=== PATIENT | female | born 1950 | race Caucasian/White ===

== ENCOUNTER 2021-08-07 10:32 | Emergency (ER) | payer MEDICARE, SELFPAY ==
--- NOTE | ~2021-08-07 | US_ITS ---
EXAMINATION: US VENOUS ULTRASOUND WITH DOPPLER LOWER EXTREMITY, RIGHT CLINICAL INFORMATION: Right-sided calf pain. Patient is on aspirin. COMPARISON: None TECHNIQUE: Ultrasound of the deep veins is performed from the hip to the calf with compression sonography and color and pulse Doppler assessment. Spectral analysis with color-flow imaging is performed. FINDINGS: There is normal venous compression and respiratory variation and augmented flow. The visualized common femoral vein, superficial femoral vein, profunda femoral vein, popliteal vein, and the trifurcation region shows no evidence of deep venous thrombosis. There are varicose vein seen in right mid calf and along the lateral aspect where there is thrombus visualized consistent with superficial thrombophlebitis. There is no significant popliteal fossa cyst. If the patient's symptoms persist, followup ultrasound in 5 days 7 days might be of value to exclude proximal propagation from a non-visualized calf vein. US/US venous duplex LE RT IMPRESSION: No DVT demonstrated in the right lower extremity. Superficial thrombophlebitis of right calf varicose veins.
[2021-08-07 10:44] VITALS: BP 163/91; PULSE 77; RESP 16; TEMP 35.9; O2SAT 98; BMI 20.7
--- NOTE | 2021-08-07 11:16 | ED_ITS ---
HPI - Extremity Problem General Chief complaint: Extremity Problem Stated complaint: Thrombophlebitis Time Seen by Provider: 08/07/21 11:16 Source: patient Mode of arrival: ambulatory Limitations: no limitations History of Present Illness HPI Narrative: 70-year-old female past medical history significant for anxiety presenting to the emergency department with complaints of right-sided calf tenderness on discomfort times a week. Patient tells me she was seen yesterday at urgent care where she was told that her diagnosis was pain and right leg, cellulitis she was started on Keflex 500 mg p.o. t.i.d. times 10 days. She was told to go have an outpatient ultrasound to rule out DVT, patient tells me she went to [facility], she got an ultrasound and she was told that she had a 7.3 cm thrombophlebitis however this is not an official report, patient comes in requesting another right lower extremity DVT study. She tells me that there was too much confusion and her right thigh is still bothering her. She denies previous DVT/PE. She is on daily aspirin. She denies chest pain, shortness of breath, nausea, vomiting, headache, dizziness, weakness, palpitations. MD Complaint: extremity swelling Onset (ago): week(s) (1) Pain Consistency: constant Location: right Quality: dull Radiation: none Relieving factors: nothing Exacerbating factors: nothing Associated symptoms: denies other symptoms Related Data Allergies Allergy/AdvReac Type Severity Reaction Status Date / Time No Known Allergies Allergy Verified 08/07/21 10:46 Review of Systems Review of Systems: Constitutional : No Weight loss, No Fever, No Chills, No Fatigue, No Malaise ENT/Mouth : No sore throat, No Rhinorrhea Eyes: No Eye Pain, No Swelling, No Redness Cardiovascular : No Chest Pain, No SOB, No Dyspnea on Exertion, No Orthopnea, No Edema, No Palpitations Respiratory : No Cough, No Sputum, No Wheezing Gastrointestinal : No Nausea, No Vomiting, No Diarrhea, No Constipation, No abdominal Pain, No Hematochezia, No Melena Genitourinary : No Dysuria, No Urinary Frequency, No Hematuria, Musculoskeletal : No joint pain, No Myalgias, No Joint Swelling, + leg swelling Skin : No Skin Lesions, No rash Neuro : No Weakness, No Numbness, No Dizziness, No Headache Psych : No Anxiety/Panic, No Depression All other systems reviewed and are negative Yes all other systems are reviewed and are negative [facility] Past Medical History Attestation statement: The following information was validated with the patient. Source: old records reviewed and nursing notes reviewed Social History Social History Advance Directives: No Advance Directives Information Provided: No Physical Exam Vital Signs: Vital Signs: Last Vital Signs Temp 97.6 F 08/07/21 12:55 Pulse 56 08/07/21 12:55 Resp 18 08/07/21 12:55 BP 164/85 H 08/07/21 12:55 Pulse Ox 96 08/07/21 11:38 BMI result Body Mass Index 20.7 VSS Appearance: Alert.? Oriented X3.? No acute distress.?Appears anxious Head: Normocephalic, atraumatic, no step-offs or deformities Eyes: Pupils equal, round and reactive to light.? ENT: Pharynx normal.? Neck: Normal inspection.? Neck supple.? CVS: Normal heart rate and rhythm.? Pulses normal.? Respiratory: No respiratory distress.? Breath sounds normal.? Abdomen: Soft and nontender.? Skin: Skin warm and dry.? Normal skin color.? Normal skin turgor.? Extremities: No lower extremity edema.? No calf ttp, negative champ. 5/5 strength to bilateral upper and lower extremities Back: No midline tenderness, no C-spine tenderness, full range of motion, no CVA tenderness bilaterally Neuro: Oriented X 3.? No motor deficit.? No sensory deficit. CN 2-12 intact Course Reevaluation(s) Reevaluation #1: Ultrasound of the right lower extremity with superficial thrombophlebitis of the right calf varicose veins, no DVT demonstrated in the right lower extremity. At this time I have educated patient on diagnosis, treatment plan. I advised her to follow-up in 5-7 days if she is still having discomfort as she may require a follow-up ultrasound. At this time I feel comfortable discharge home with PCP follow-up. Comfortable discharge To at time of discharge patient stable, vital signs stable. History and physical examination not consistent with pulmonary embolism. At this time she will be discharged home Time: 13:34 MDM - Extremity (Nontraumatic) MDM Narrative Medical decision making narrative: 2320 70-year-old female presents to the emergency department requesting a right lower extremity ultrasound to rule out DVT. Patient had 1 done however has not been bread, patient extremely anxious about this, reports continued right-sided calf pain. Denies shortness of breath or chest pain. Physical examination benign, unable to appreciate lower extremity edema, negative Champ bilaterally. Regular rate and rhythm. Lungs clear. Abdomen soft nontender nondistended. Neuro exam is nonfocal. Vital signs stable. Well score of 1 PERC score 1 for age, however, I do not suspect PE. Plan duplex us of RLE Medical Records Attestation: I reviewed the patient's medical records. Lab Data Attestation: I reviewed the patient's lab results. Critical Care Time Critical Care Time Critical Care Time: No Discharge Plan Discharge Clinical Impression: Superficial thrombophlebitis, Pain of right calf Patient Disposition: Home, Self-Care Instructions: Leg Pain (ED) Additional Instructions: Take your medications as prescribed. If you were prescribed antibiotics today, it is important that you take your medication to their entirety, do not skip any doses, do not finish them early. Follow-up with your primary care provider this week. Return to the emergency department with new or worsening symptoms. Such as fevers, chills, chest pain, shortness of breath, nausea, vomiting, dizziness, headache, vision changes, lethargy In case of emergency call 911 If the patient's symptoms persist, followup ultrasound in 5 days 7 days might be of value to exclude proximal propagation from a non-visualized calf vein. US/US venous duplex LE RT IMPRESSION: No DVT demonstrated in the right lower extremity. Superficial thrombophlebitis of right calf varicose veins. Referrals: Yanick Mock III, MD [Primary Care Provider] - 2 days
[2021-08-07 11:38] VITALS: BP 177/82; PULSE 70; RESP 18; O2SAT 96
[2021-08-07 12:55] VITALS: BP 164/85; PULSE 56; RESP 18; TEMP 36.4
== END 2021-08-07 13:41 | disposition home or self-care (01) ==
LOC: HO.ED 11:48
PROVIDERS: Emergency Provider Student in an Organized Health Care Education/Training Program; PCP Internal Medicine
DX: I80.01 Phlebitis and thrombophlebitis of superficial vessels of right lower extremity (principal); M79.661 Pain in right lower leg; Z79.82 Long term (current) use of aspirin
CPT/HCPCS: 93971; 99283; 99284

== ENCOUNTER 2021-08-11 09:07 | Emergency (ER) | payer MEDICARE, SELFPAY ==
--- NOTE | ~2021-08-11 | XR_ITS ---
EXAMINATION: XR CHEST CLINICAL INFORMATION: Palpitations and chest pain at times. COMPARISON: None TECHNIQUE: 2 views of the chest were obtained. FINDINGS: There is generalized hyperinflation. The lungs are clear. There are no pleural effusions. The heart and mediastinal structures are unremarkable. XR/XR chest 2V IMPRESSION: Generalized hyperinflation is nonspecific, but can be seen with COPD. No acute cardiopulmonary process.
[2021-08-11 09:13] VITALS: BP 169/96; PULSE 91; RESP 18; TEMP 36.6; O2SAT 98; BMI 20.7
--- NOTE | 2021-08-11 09:17 | ECG_ITS ---
Test Reason : DIZZINESS Blood Pressure : / mmHG Vent. Rate : 081 BPM Atrial Rate : 081 BPM P-R Int : 132 ms QRS Dur : 082 ms QT Int : 386 ms P-R-T Axes : 078 007 064 degrees QTc Int : 448 ms Normal sinus rhythm Biatrial enlargement Possible Inferior infarct , age undetermined Abnormal ECG No previous ECGs available Referred By: Generic ED Physician Electronically Signed By:MICHELLE SALMERON
[2021-08-11 09:29] LABS: MANUAL DIFF FLAG NO
[2021-08-11 09:38] LABS: Basophils Absolute Auto 0.1 X10*3/uL (0.0-0.2); Basophils Percent Auto 0.9 % (0-2); Eosinophils Absolute Auto 0.1 X10*3/uL (0.0-0.4); Eosinophils Percent Auto 0.6 % (0-4); Hematocrit 38.7 % (37.0-47.0); Hemoglobin 12.8 g/dl (12.0-16.0); Imm Gran Abs Auto 0.02 X10*3/uL (0.00-0.03); Imm Gran Pct Auto 0.3 % (0.0-0.4); Lymphocytes Absolute Auto 1.8 X10*3/uL (1.2-4.9); Lymphocytes Percent Auto 22.6 % (20-40); Mean Corpuscular HGB Conc 33.1 g/dl (31.0-35.0); Mean Corpuscular Hemoglobin 31.4 pg (27.0-33.0); Mean Corpuscular Volume 94.9 fL (80.0-98.0); Mean Platelet Volume 9.8 fL (9.4-12.3); Monocytes Absolute Auto 0.6 X10*3/uL (0.1-1.2); Monocytes Percent Auto 7.4 % (2-11); Neutrophils Absolute Auto 5.4 x10*3/uL (2.0-8.3); Neutrophils Percent Auto 68.2 % (45-73); Platelet Count 231 X10*3/uL (160-400); Red Blood Count 4.08 X10*6/uL (4.20-5.50); Red Cell Distribution Width 13.9 % (11.0-16.0); White Blood Count 7.9 X10*3/uL (4.8-10.8)
[2021-08-11 09:45] LABS: Anion Gap 14 (12-20); Blood Urea Nitrogen 15 mg/dL (9-16); Calcium 9.2 mg/dL (8.4-10.2); Carbon Dioxide 22 mmol/L (22-29); Chloride 105 mmol/L (96-108); Creatinine Clr Calc Pharmacy 51.3; Estimated Glomerular Filt Rate > 60; Glucose Random 144 mg/dL (60-115); Sodium 136 mmol/L (135-145)
[2021-08-11 09:49] LABS: Troponin-I High Sensitivity < 3.5 ng/L (<3.5-17.0)
[2021-08-11 13:07] VITALS: BP 185/93; PULSE 81; RESP 19; O2SAT 98
--- NOTE | 2021-08-11 17:42 | ED.GENADULT ---
HPI - General Adult General Chief complaint: General Medical Stated complaint: high bp, Time Seen by Provider: 08/11/21 17:29 Source: patient and old records reviewed Mode of arrival: ambulatory Limitations: no limitations History of Present Illness MD complaint: high BP, anxiety, stress Onset (ago): week(s) (1) Severity: mild Quality: other (anxiety) Pain Consistency: intermittent Relieving factors: other (does take xanax 0.5mg daily PRN but only one dose a day) Exacerbating factors: other (very stressed out about her coming home from rehab states she cannot care for him and he his coming home on Sunday ) Associated symptoms: other (anxiety, stress, feels some pain in chest at times mild, feels palpitations) Treatments prior to arrival: none Related Data Previous Rx's Medication Instructions Recorded amlodipine 2.5 mg tablet 2.5 mg PO DAILY #30 tabs 08/11/21 Allergies Allergy/AdvReac Type Severity Reaction Status Date / Time No Known Allergies Allergy Verified 08/07/21 10:46 Review of Systems Review of Systems: Constitutional : No Fever, No Chills ENT/Mouth : No sore throat, No Rhinorrhea, No Swallowing Difficulty Eyes: No Eye Pain, No Swelling, No Redness Cardiovascular : pos Chest Pain, no SOB, No Orthopnea, no Edema, pos palpitations Respiratory : No Cough, No Sputum, No Wheezing, positive dyspnea Gastrointestinal : No Nausea, No Vomiting, No Diarrhea, No abdominal Pain, No Hematochezia, No Melena Genitourinary : No Dysuria, No Urinary Frequency, No Hematuria Musculoskeletal : No joint pain, No Myalgias Skin : No Skin Lesions, No rash Neuro : No Weakness, No Numbness, No Dizziness, No Headache Psych : pos Anxiety/Panic, No Depression Heme/Lymph: No Bruising, No Lymphadenopathy Endocrine : No Polyuria, No Polydipsia All other systems reviewed and are negative [facility] Past Medical History Attestation statement: The following information was validated with the patient. Medical History Anxiety PVD (peripheral vascular disease) Raynaud disease Social History Social History (Updated 08/11/21 @ 17:48 by Kelley Mcnamara DO) Patient Tobacco Use Status: Tobacco use Unknown Advance Directives: No Advance Directives Information Provided: No Physical Exam ED Vital Signs: Vital Signs - 24 hr 08/11/21 09:13 08/11/21 13:07 08/11/21 17:44 Temperature 98 F Pulse Rate 91 81 Respiratory Rate 18 19 Blood Pressure 169/96 H 185/93 H 167/78 H Pulse Oximetry 98 98 Oxygen Delivery Method Room Air BMI result Body Mass Index 20.7 Appearance: Alert. Oriented X3. No acute distress. Anxious Eyes: Pupils equal, round and reactive to light. ENT: Pharynx normal. Neck: Normal inspection. Neck supple. CVS: Normal heart rate and rhythm. Pulses normal. Respiratory: No respiratory distress. Breath sounds normal. Abdomen: Soft and nontender. Skin: Skin warm and dry. Normal skin color. Normal skin turgor. Extremities: No lower extremity edema. Bilateral engorged veins no signs of infection Neuro: Oriented X 3. No motor deficit. No sensory deficit. Course Course Course Narrative: labs stable spoken to by CM stable for DC Medical Decision Making MDM Narrative Medical decision making narrative: 70 yo female hx of anxiety, PVD very stressed out here with c/o BP at home up to 180s at home due to stress with the thought of her ill coming back home from [facility]. She states she cannot care for him and they are sending him back regardless. She takes 0.5mg once daily PRN anxiety. She feels overwhelmed and stressed. Her BP prior to this had been increasing at home prior to this event. Will obtain EKG, basic labs, troponin x 1, offer case management, trend BP and likely start on amlodipine 2.5mg daily. May need to increase xanax 0.5mg to BID during this life event. Lab Data Result diagrams: 08/11/21 09:26 08/11/21 09:26 Labs: Lab Results 08/11/21 08/11/21 08/11/21 Range/Units 09:26 09:26 09:26 WBC 7.9 (4.8-10.8) X10*3/uL RBC 4.08 L (4.20-5.50) X10*6/uL Hgb 12.8 (12.0-16.0) g/dl Hct 38.7 (37.0-47.0) % MCV 94.9 (80.0-98.0) fL MCH 31.4 (27.0-33.0) pg MCHC 33.1 (31.0-35.0) g/dl RDW 13.9 (11.0-16.0) % Plt Count 231 (160-400) X10*3/uL MPV 9.8 (9.4-12.3) fL Immature Gran % (Auto) 0.3 (0.0-0.4) % Neut % (Auto) 68.2 (45-73) % Lymph % (Auto) 22.6 (20-40) % [place] % (Auto) 7.4 (2-11) % Eos % (Auto) 0.6 (0-4) % Baso % (Auto) 0.9 (0-2) % Lymph # (Auto) 1.8 (1.2-4.9) X10*3/uL [place] # (Auto) 0.6 (0.1-1.2) X10*3/uL Eos # (Auto) 0.1 (0.0-0.4) X10*3/uL Baso # (Auto) 0.1 (0.0-0.2) X10*3/uL Abs Immat Gran (auto) 0.02 (0.00-0.03) X10*3/uL Absolute Neuts (auto) 5.4 (2.0-8.3) x10*3/uL Absolute Nucleated RBC 0.000 (0.0-0.012) X10*3/uL Nucleated RBC % (auto) 0.0 (0.0-0.2) /100WBC Sodium 136 (135-145) mmol/L Potassium 5.0 (3.3-5.1) mmol/L Chloride 105 (96-108) mmol/L Carbon Dioxide 22 (22-29) mmol/L Anion Gap 14 (12-20) BUN 15 (9-16) mg/dL Creatinine 0.88 (0.5-1.4) mg/dL Estim Creat Clear Calc 51.3 Estimated GFR > 60 Random Glucose 144 H (60-115) mg/dL Calcium 9.2 (8.4-10.2) mg/dL Troponin I High Sens < 3.5 (<3.5-17.0) ng/L ECG Data Attestation: I personally reviewed and interpreted this ECG as follows: Interpretation: Rate: 81 Rhythm: NSR [place]: normal Normal P waves. Normal [place]. Normal QRS complex. ST T wave : beatriz no DEWAYNE qTC: normal prior studies: no acute ischemia The study has been interpreted contemporaneously by me. . Discharge Plan Discharge Clinical Impression: Stress, HTN (hypertension) Patient Disposition: Home, Self-Care Instructions: Stress (ED), Hypertension (ED) Additional Instructions: return to ED for any worsening symptoms or concerns please follow up with your doctor, if you become dizzy or feel lightheaded stop taking blood pressure medications your EKG, blood work and chest xray were normal today Prescriptions: New amlodipine 2.5 mg tablet 2.5 mg PO DAILY Qty: 30 0RF Referrals: Yanick Mock III, MD [Primary Care Provider] - 1 week
[2021-08-11 17:44] VITALS: BP 167/78
[2021-08-11 18:27] VITALS: BP 163/80; PULSE 65; RESP 18; TEMP 36.9; O2SAT 98
--- NOTE | 2021-08-11 18:34 | PC.NURSE ---
PT HAS BEEN PATIENTLY WAITING. RLE HAS SWELLING AND DARK REDDNESS. PALPABLE PEDAL PULSES.
--- NOTE | 2021-08-11 18:50 | MHC.CM.ED ---
CM met with patient at the request of Dr. Mcnamara. Pt is very anxious about 's discharge from local [facility]. Pt appears very distressed and is happy to speak with CM. The patient is very unhappy with her 's impending discharge as she states she cannot care for him. She is worried about his hx of falls. Pt appealed his discharge and it was denied. Upon further conversation CM determined that her has d/c services with [facility] and PT. Encouraged pt to call [facility] for further supports. Enc pt to involve pt's grown children if possible. Also spoke with patient about considering private pay [employer] if they can afford it. CM explained to pt that I could listen and offer suggestions, but that I could not do anything for her , as he is being cared for at another facility. Pt requesting a letter from the doctor stating that she is medically unwell and cannot care for her this weekend. Explained to patient that I did not think the doctor would be able to do that for her. Explained that I would speak with the doctor about our conversation. Also explained to the patient that if her were to fall or appear unsafe when he is at home, she can always bring him to the emergency room for care. CM reviewed above with Dr. Mcnamara. Pt medically cleared. Dr. Mcnamara will order BP and anxiety medications for pt.
== END 2021-08-11 18:38 | disposition home or self-care (01) ==
PROVIDERS: Emergency Provider Emergency Medicine; PCP Internal Medicine
DX: F41.9 Anxiety disorder, unspecified (principal); I10 Essential (primary) hypertension; Z73.3 Stress, not elsewhere classified; Z72.89 Other problems related to lifestyle; Z63.6 Dependent relative needing care at home; Z79.899 Other long term (current) drug therapy
CPT/HCPCS: 36415; 71046; 80048; 84484; 85025; 93005; 99282; 99283

== ENCOUNTER 2021-08-18 12:06 | Emergency (ER) | payer MEDICARE, SELFPAY ==
--- NOTE | ~2021-08-18 | US_ITS ---
EXAMINATION: US VENOUS ULTRASOUND WITH DOPPLER LOWER EXTREMITY, RIGHT CLINICAL INFORMATION: Right lower extremity edema and pain COMPARISON: None TECHNIQUE: Ultrasound of the deep veins is performed from the hip to the calf with compression sonography and color and pulse Doppler assessment. Spectral analysis with color-flow imaging is performed. FINDINGS: There is normal venous compression and respiratory variation and augmented flow. The visualized common femoral vein, superficial femoral vein, profunda femoral vein, popliteal vein, and the trifurcation region shows no evidence of deep venous thrombosis. There is no significant popliteal fossa cyst. If the patient's symptoms persist, followup ultrasound in 5 days 7 days might be of value to exclude proximal propagation from a non-visualized calf vein. US/US venous duplex LE RT IMPRESSION: No DVT demonstrated in the right lower extremity.
[2021-08-18 12:13] VITALS: BP 171/89; PULSE 81; RESP 16; TEMP 36.6; O2SAT 99; BMI 20.7
--- NOTE | 2021-08-18 12:21 | ED_ITS ---
HPI - General Adult General Chief complaint: Skin/Abscess/Foreign Body Stated complaint: cellulitis blood clots follow up Time Seen by Provider: 08/18/21 12:20 Source: patient Mode of arrival: ambulatory Limitations: no limitations History of Present Illness HPI narrative: Patient is a 70 year old female presenting to the emergency department today with right lower leg pain and swelling. Patient states that she was seen a week ago for right lower leg cellulitis and superficial thrombitis. Patient states that the original area of concern for her was the lateral side of the medial side of the right lower leg. That has resolved and now it is the lateral side of the right lower leg. Patient states that she has a vascular surgeon but has not been able to follow up with him because her is very ill and requires round the clock care. Patient states that she absolutely cannot stay here today as she has to go back home to take care of her . Patient denies any dizziness, lightheadedness, abdominal pain, nausea, vomiting, fever, chills, blurry vision, double vision, loss of vision, chest pain, difficulty breathing, shortness of breath, back pain, night sweats, pain with urination, increased urinary frequency, increased urinary urgency, blood in her urine or stool, syncope or a near syncopal episode, recent trauma or falls, bowel incontinence, bladder incontinence, bowel retention, bladder retention, or any other complaints at this time. Onset (ago): day(s) Location: right and lower extremity Radiation: non-radiation Severity: mild Severity scale (1-10): 3 Quality: dull Pain Consistency: constant Relieving factors: none Exacerbating factors: none Associated symptoms: denies other symptoms Treatments prior to arrival: none Related Data Previous Rx's Medication Instructions Recorded amlodipine 2.5 mg tablet 2.5 mg PO DAILY #30 tabs 08/11/21 cephalexin 500 mg capsule 500 mg PO Q6H 7 days #28 caps 08/18/21 sulfamethoxazole 800 1 tab PO BID 7 days #14 tabs 08/18/21 mg-trimethoprim 160 mg tablet (Bactrim DS) Allergies Allergy/AdvReac Type Severity Reaction Status Date / Time No Known Allergies Allergy Verified 08/07/21 10:46 Review of Systems Constitutional: Constitutional: Reports no additional constitutional complaints, Denies chills, Denies fever(s) and Denies night sweats Eyes: Eyes: Reports no additional eye complaints, Denies blurry vision, Denies change in vision, Denies diplopia, Denies eye discharge, Denies loss of vision a nd Denies eye pain ENT: Denies dizziness Cardiovascular: Cardiovascular: Reports no additional cardiovascular compla ints, Denies chest pain, Denies lightheadedness, Denies Loss of Consciousness and Denies dyspnea Respiratory: Respiratory: Reports no additional respiratory complaints and Denies dyspnea Gastrointestinal: Gastrointestinal: Reports no additional gastrointestinal complaints, Denies abdominal pain, Denies melena, Denies hematochezia, Denies change in bowel habits and Denies change in stool character Genitourinary: Genitourinary: Denies hematuria, Denies urinary frequency, Denies dysuria, Denies urinary incontinence, Denies urinary hesitancy and Denies urinary urgency Musculoskeletal: Musculoskeletal: Reports no additional musculoskeletal complaints, Denies numbness and Denies tingling Integumentary/Breasts: Comments: right lower leg pain and swelling Neurologic: Denies dizziness, Denies loss of vision, Denies numbness and Denies tingling Psychiatric: Psychiatric: Reports no additional psychiatric complaints Endocrine: Endocrine: Reports no additional endocrine complaints Hematologic/Lymphatic: Hematologic/Lymphatic: Reports no additional hematologic/lymphatic complaints Allergic/Immunologic: Allergic/Immunologic: Reports no additional allergic/im munologic complaints PMFSH Past Medical History Attestation statement: The following information was validated with the patient. Source: old records reviewed Medical History Anxiety PVD (peripheral vascular disease) Raynaud disease Social History Social History Patient Tobacco Use Status: Tobacco use Unknown Advance Directives: Yes Advance Directives Information Provided: Yes Advance Directives on File: No Physical Exam ED Vital Signs: Vital Signs - 24 hr 08/18/21 12:13 08/18/21 15:28 Temperature 97.8 F 98.9 F Pulse Rate 81 80 Respiratory Rate 16 18 Blood Pressure 171/89 H 156/70 H Pulse Oximetry 99 96 Oxygen Delivery Method Room Air Room Air BMI result Body Mass Index 20.7 Const General: cooperative, no acute distress, alert and awake Nutritional Appearance: well nourished Orientation/consciousness: patient oriented x3 Limitations: no limitations HENMT Head: Yes normal to inspection and Yes atraumatic Ears: hearing grossly normal bilaterally and external ears normal General nose exam: Normal external nose present, no nasal discharge noted and no epistaxis Face and sinus: Yes normal facial exam, No abrasion and No laceration Mouth: Normal oral and palatal mucosa present, no drooling and no muffled voice Eyes General: appearance normal, both eyes and all related structures Periorbital: periorbital findings normal Eyelids: Yes eyelids normal Conjunctivae: conjunctivae normal Pupils: Equal, round and reactive pupils present EOM: EOMs intact bilaterally Neck Neck: Yes normal visual inspection, Yes full ROM and Yes no lymphadenopathy Chest Chest palpation & inspection: normal inspection of the chest Resp Effort & Inspection: normal respiratory effort and able to speak in complete sentences Auscultation: clear to auscultation bilaterally Cardio Rate: regular rate Rhythm: regular rhythm GI Inspection: Yes normal to inspection Skin Other: erythema and warmth present to the lateral right lower leg, venous stasis dermatitis present to the right lower medial leg Neuro General: patient oriented x3 and moves all extremities Cranial nerves: Yes Equal, round and reactive pupils present Cognition (Neuro): normal cognition Motor exam (neuro): 5/5 motor strength present throughout Sensory Exam: Normal double simultaneous stimulation for sensation Coordination: [id number] test normal Extrem General: Yes normal to inspection, Yes full ROM and Yes capillary refill normal Psych Appearance: grossly normal Mental Status: mental status grossly normal Affect: normal affect Attitude: cooperative Thought process: Normal thought process present Thought content: Normal thought content present Insight: Good insight present (Psych) Medical Decision Making [facility] Narrative Medical decision making narrative: Patient is a 70 year old female presenting to the emergency department today with right lower leg swelling and redness. Patient's physical exam was as described earlier in this chart. Patient's blood work was unremarkable. Patient's right lower leg US showed no acute process. I explained my physical exam findings as well as all test results to the patient. I answered all questions asked by the patient. Patient received IV Zosyn. I stressed the importance of the patient taking her medication as prescribed. I stressed the importance of the patient following up with her primary care provider and her vascular surgeon. I stressed the importance of the patient returning to the emergency department immediately if her symptoms were to worsen or if she were to develop any dizziness, shortness of breath, difficulty breathing, chest pain, blurry vision, loss of vision, nausea, vomiting, abdominal pain, fever, chills, back pain, or any other complaints. Patient verbalized agreement and understanding with this treatment plan and discharge. Differential Diagnosis Differential Diagnosis: cellulitis, venous stasis dermatitis Medical Records Medical records reviewed: Yes I reviewed the patient's medical records. Lab Data Lab results reviewed: Yes I reviewed the patient's lab results. Result diagrams: 08/18/21 12:59 08/18/21 12:58 Labs: Lab Results 08/18/21 08/18/21 08/18/21 Range/Units 12:58 12:58 12:59 WBC 8.5 (4.8-10.8) X10*3/uL RBC 3.83 L (4.20-5.50) X10*6/uL Hgb 12.2 (12.0-16.0) g/dl Hct 36.1 L (37.0-47.0) % MCV 94.3 (80.0-98.0) fL MCH 31.9 (27.0-33.0) pg MCHC 33.8 (31.0-35.0) g/dl RDW 13.9 (11.0-16.0) % Plt Count 245 (160-400) X10*3/uL MPV 9.6 (9.4-12.3) fL Immature Gran % (Auto) 0.2 (0.0-0.4) % Neut % (Auto) 59.1 (45-73) % Lymph % (Auto) 31.2 (20-40) % [place] % (Auto) 8.3 (2-11) % Eos % (Auto) 0.5 (0-4) % Baso % (Auto) 0.7 (0-2) % Lymph # (Auto) 2.6 (1.2-4.9) X10*3/uL [place] # (Auto) 0.7 (0.1-1.2) X10*3/uL Eos # (Auto) 0.0 (0.0-0.4) X10*3/uL Baso # (Auto) 0.1 (0.0-0.2) X10*3/uL Abs Immat Gran (auto) 0.02 (0.00-0.03) X10*3/uL Absolute Neuts (auto) 5.0 (2.0-8.3) x10*3/uL Absolute Nucleated RBC 0.000 (0.0-0.012) X10*3/uL Nucleated RBC % (auto) 0.0 (0.0-0.2) /100WBC Sodium 137 (135-145) mmol/L Potassium 4.2 (3.3-5.1) mmol/L Chloride 106 (96-108) mmol/L Carbon Dioxide 25 (22-29) mmol/L Anion Gap 10 L (12-20) BUN 19 H (9-16) mg/dL Creatinine 0.78 (0.5-1.4) mg/dL Estim Creat Clear Calc 57.9 Estimated GFR > 60 Random Glucose 118 H (60-115) mg/dL Lactic Acid 0.6 (0.5-2.0) mmol/L Calcium 9.4 (8.4-10.2) mg/dL Total Bilirubin 0.4 (0.0-1.0) mg/dL AST 22 (5-31) U/L ALT 15 (0-31) U/L Alkaline Phosphatase 40 (39-117) U/L Total Protein 6.8 (6.5-8.0) g/dL Albumin 4.2 (3.5-5.0) g/dL Imaging Data Right lower leg ultrasound: Attestation: I personally reviewed and interpreted this imaging study as follows: My impression: No acute process. Radiologist's impression: EXAMINATION:? US VENOUS ULTRASOUND WITH DOPPLER LOWER EXTREMITY, RIGHT CLINICAL INFORMATION:? Right lower extremity edema and pain COMPARISON:? None TECHNIQUE: Ultrasound of the deep veins is performed from the hip to the calf with compression sonography and color and pulse Doppler assessment. Spectral analysis with color-flow imaging is performed. FINDINGS: There is normal venous compression and respiratory variation and augmented flow. The visualized common femoral vein, superficial femoral vein, profunda femoral vein, popliteal vein, and the trifurcation region shows no evidence of deep venous thrombosis. ? There is no significant popliteal fossa cyst. If the patient's symptoms persist, followup ultrasound in 5 days 7 days might be of value to exclude proximal propagation from a non-visualized calf vein. US/US venous duplex LE RT IMPRESSION: No DVT demonstrated in the right lower extremity. Dictated By: Zac Raymundo MD Signed By: Electronically signed by Zac Raymundo MD 08/18/21 0129 Discharge Plan Discharge Clinical Impression: Cellulitis Patient Disposition: Home, Self-Care Instructions: Cellulitis (ED) Additional Instructions: Follow up with your primary care provider. Return to the emergency department immediately if your symptoms worsen or if you develop any dizziness, shortness of breath, difficulty breathing, chest pain, blurry vision, loss of vision, nausea, vomiting, abdominal pain, fever, chills, back pain, or any other complaints. Prescriptions: New cephalexin 500 mg capsule 500 mg PO Q6H 7 Days Qty: 28 0RF sulfamethoxazole-trimethoprim [Bactrim DS] 800-160 mg tablet 1 tab PO BID 7 Days Qty: 14 0RF No Action amlodipine 2.5 mg tablet 2.5 mg PO DAILY Qty: 30 0RF Referrals: Yanick Mock III, MD [Primary Care Provider] - Interventions: ED Discharge Assessment Last Done: 08/18/21 15:29 Discharge Date/Time: 08/18/21 15:30 Print Language: German
[2021-08-18 13:04] LABS: MANUAL DIFF FLAG NO
[2021-08-18 13:09] LABS: Basophils Absolute Auto 0.1 X10*3/uL (0.0-0.2); Basophils Percent Auto 0.7 % (0-2); Eosinophils Percent Auto 0.5 % (0-4); Hematocrit 36.1 % (37.0-47.0); Hemoglobin 12.2 g/dl (12.0-16.0); Imm Gran Abs Auto 0.02 X10*3/uL (0.00-0.03); Imm Gran Pct Auto 0.2 % (0.0-0.4); Lymphocytes Absolute Auto 2.6 X10*3/uL (1.2-4.9); Lymphocytes Percent Auto 31.2 % (20-40); Mean Corpuscular HGB Conc 33.8 g/dl (31.0-35.0); Mean Corpuscular Hemoglobin 31.9 pg (27.0-33.0); Mean Corpuscular Volume 94.3 fL (80.0-98.0); Mean Platelet Volume 9.6 fL (9.4-12.3); Monocytes Absolute Auto 0.7 X10*3/uL (0.1-1.2); Monocytes Percent Auto 8.3 % (2-11); Neutrophils Percent Auto 59.1 % (45-73); Platelet Count 245 X10*3/uL (160-400); Red Blood Count 3.83 X10*6/uL (4.20-5.50); Red Cell Distribution Width 13.9 % (11.0-16.0); White Blood Count 8.5 X10*3/uL (4.8-10.8)
[2021-08-18 13:23] LABS: Lactic Acid 0.6 mmol/L (0.5-2.0)
[2021-08-18 13:31] LABS: Alanine Aminotransferase 15 U/L (0-31); Albumin Level 4.2 g/dL (3.5-5.0); Alkaline Phosphatase 40 U/L (39-117); Anion Gap 10 (12-20); Aspartate Amino Transferase 22 U/L (5-31); Bilirubin Total 0.4 mg/dL (0.0-1.0); Blood Urea Nitrogen 19 mg/dL (9-16); Calcium 9.4 mg/dL (8.4-10.2); Carbon Dioxide 25 mmol/L (22-29); Chloride 106 mmol/L (96-108); Creatinine Clr Calc Pharmacy 57.9; Estimated Glomerular Filt Rate > 60; Glucose Random 118 mg/dL (60-115); Potassium 4.2 mmol/L (3.3-5.1); Sodium 137 mmol/L (135-145); Total Protein 6.8 g/dL (6.5-8.0)
[2021-08-18] MEDS: Piperacillin Sodium/Tazobactam 4.5 GM in 0.9 % Sodium Chloride 100 ML IV (13:56)
[2021-08-18 15:28] VITALS: BP 156/70; PULSE 80; RESP 18; TEMP 37.2; O2SAT 96
== END 2021-08-18 15:30 | disposition home or self-care (01) ==
PROVIDERS: Physician Assistant Medical; Emergency Provider Student in an Organized Health Care Education/Training Program; PCP Internal Medicine
DX: L03.115 Cellulitis of right lower limb (principal); M79.661 Pain in right lower leg
CPT/HCPCS: 36415; 80053; 83605; 85025; 87040; 93971; 96365; 99284; J2543